=== PATIENT | female | born 1975 | race Hispanic/Latino ===

== ENCOUNTER 2018-04-02 05:55 | Observation (INO) | payer OTHER ==
--- NOTE | 2018-03-29 13:51 | Anesthesia Day of Surgery ---
Anesthesia Day of Surgery - Day of Surgery Patient Examined: Yes Patient H&P Reviewed: Yes Patient is NPO: Yes
--- NOTE | 2018-03-29 13:54 | Anesthesia Consultation ---
Anesthesia Consult and Med Hx Date of service: 03/29/18 - Airway Anesthetic Teeth Evaluation: Good (missing left upper molar) ROM Head & Neck: Adequate Mental/Hyoid Distance: Adequate Mallampati Class: Class III Intubation Access Assessment: Possibly Difficult - Pulmonary Exam CTA: Yes - Cardiac Exam Cardiac Exam: RRR - Pre-Operative Health Status ASA Pre-Surgery Classification: ASA3 Proposed Anesthetic Plan: General - Pulmonary Hx Smoking: Yes (1ppd x 20 yrs) Hx Respiratory Symptoms: No (Chronic Sinusitis) Hx Sleep Apnea: No (undiagnosed. Snores) - Cardiovascular System Hx Angina: No (LVH, EF 55%) - Central Nervous System Hx Seizures: No (Migraines) Hx Psychiatric Problems: Yes (Anxiety d/o) - Gastrointestinal Hx Gastroesophageal Reflux Disease: Yes - Hematic Hx Anemia: Yes - Other Systems Hx Cancer: No Hx Obesity: Yes (morbid obesity)
[2018-03-29 14:28] LABS: Basophils # (Auto) 0.1 K/mm3 (0.0-0.1); Basophils % (Auto) 0.8 % (0.0-1.8); Eosinophils # (Auto) 0.4 K/mm3 (0.0-0.4); Eosinophils % (Auto) 3.5 % (0.0-4.3); Hematocrit 25.8 % (30.3-42.9); Hemoglobin 8.2 gm/dl (10.1-14.3); Lymphocytes # (Auto) 3.2 K/mm3 (1.2-5.4); Lymphocytes % (Auto) 25.4 % (13.4-35.0); Mean Corpuscular HGB Conc 32 % (30-34); Mean Corpuscular Hemoglobin 23 pg (28-32); Mean Corpuscular Volume 71 fl (79-97); Monocytes # (Auto) 0.6 K/mm3 (0.0-0.8); Monocytes % (Auto) 5.1 % (0.0-7.3); Platelet Count 468 K/mm3 (140-440); Red Blood Count 3.64 M/mm3 (3.65-5.03); Red Cell Distribution Width 18.2 % (13.2-15.2)
[2018-03-29 14:37] LABS: BUN/Creatinine Ratio 14; Blood Urea Nitrogen 7 mg/dL (7-17); Calcium 8.9 mg/dL (8.4-10.2); Hemolysis Index 3
--- NOTE | 2018-04-01 17:54 | History and Physical Report ---
History of Present Illness Date of examination: 03/29/18 History of present illness: This is a 42-year-old female with a long history of excessive and frequent menstruation. Her bleeding has been unresponsive to medical management and she now desires to proceed with hysterectomy. She has decided to have major surgery now because she feels she at her most optimal health for surgery and does not want to have to further exposure to generial ansesthesa if conservative intervention did not correct her bleeding. 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 Surgery lsc -endometriosis 1996 Cholecystectomy Abnormal PAP: negative Infection History HIV Risk Eval: no Hx of STD: None Active Medications (reviewed today): IBUPROFEN 800 MG ORAL TABLET (IBUPROFEN) 1 po TID (PRN) OXYCODONE-ACETAMINOPHEN 5-325 MG ORAL TABLET (OXYCODONE-ACETAMINOPHEN) 1-2po q6h prn pain IRON () VITAMIN C () Current Allergies (reviewed today): No known allergies Past Medical History: Reviewed history from 01/28/2018 and no changes required: Anemia Past Surgical History: Reviewed history from 01/28/2018 and no changes required: 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 PROFESSOR Surgery lsc -endometriosis 1996 Cholecystectomy Family History Summary: Other family member - Has No Family History of Uterine Cancer - Entered On: 2017 Other family member - Has No Family History of Stomach Cancer - Entered On: 2017 Other family member - Has No Family History of Spontaneous DVT-PE - Entered On: 04/01/2018 Other family member - Has No Family History of Small Bowel Cancer - Entered On: 04/01/2018 Other family member - Has No Family History of Pancreatic Cancer - Entered On: Other family member - Has No Family History of Kidney/Urinary Tract Cancer - Entered On: 04/01/2018 Other family member - Has No Family History of Colon Cancer - Entered On: 2017 Other family member - Has No Family History of Brain Cancer - Entered On: 2017 Other family member - Has No Family History of Biliary Tract Cancer - Entered On : 04/01/2018 Social History: Patient is Smoking History: Patient currently smokes every day. Risk Factors: Smoked Tobacco Use: Current every day smoker Counseled to quit/cut down: yes PAP Smear History: Date of Last PAP Smear: 10/02/2017 Previous Tobacco Use: Signed On 02/22/2018 Smoked Tobacco Use: Current every day smoker Cigarettes: Yes -- 1 pk daily pack(s) per day, Year started: age 22 Smokeless Tobacco Use: Never Counseled to quit/cut down: yes Passive smoke exposure: no Drug use: no HIV high-risk behavior: no Previous Alcohol Use: Signed On 02/22/2018 Alcohol use: yes Type: occ Drinks per day: social Exercise: no Seatbelt use: 100 % PAP Smear History: Date of Last PAP Smear: 10/02/2017 Review of Systems General Denies fever, chills, sweats, anorexia, fatigue, weakness, malaise, weight loss and sleep disorder. Complains of menorrhagia and abnormal vaginal bleeding. Denies vaginal discharge, incontinence, dysuria, hematuria, urinary frequency, amenorrhea, pelvic pain, genital sores, decreased libido, painful periods, painful sex, urinary urgency, hot flashes, vaginal dryness, vaginal itching and vaginal odor. CV Denies chest pains, palpitations, syncope, dyspnea on exertion, orthopnea, PND and peripheral edema. Resp Denies cough, dyspnea at rest, excessive sputum, hemoptysis, wheezing and pleurisy. GI Denies nausea, vomiting, diarrhea, constipation, change in bowel habits, abdominal pain, melena, hematochezia, jaundice, gas/bloating, indigestion/ heartburn, dysphagia and odynophagia. Endo Denies cold intolerance, heat intolerance, polydipsia, polyphagia, polyuria and unusual weight change. Breast Denies left breast lump, right breast lump, nipple discharge, bloody discharge from nipple, breast pain, abnormal mammogram and breast enlargement. MS Denies back pain, joint pain, joint swelling, muscle cramps, muscle weakness, stiffness, arthritis, sciatica, restless legs, leg pain at night and leg pain with exertion. Derm Denies rash, itching, dryness and suspicious lesions. Neuro Denies paralysis, paresthesias, headache, seizures, tremors, vertigo, transient blindness, frequent falls, frequent headaches and difficulty walking. Psych Denies depression, anxiety, irritability and mood swings. Eyes Denies blurring, diplopia, irritation, discharge, vision loss, eye pain and photophobia. ENT Denies earache, ear discharge, tinnitus, decreased hearing, nasal congestion, nosebleeds, sore throat and hoarseness. Allergy Denies urticaria, allergic rash, hay fever and recurrent infections. Heme Denies abnormal bruising, bleeding and enlarged lymph nodes. Physical Exam Appearance: well developed, well nourished, no acute distress Other Exams Lungs: no rales, rhonchi, or wheezes Heart: S1, S2, no murmur, rub, or gallop Abdomen: soft, non-tender, no masses Appearance: obese Impression & Recommendations: Problem # 1: Excessive and frequent menstruation with irregular cycle (ICD- 626.6) (IGC08-C48.1) Consent reviewed and signed . Possible laparoscopy or laparotomy explained to patient. The risks and alternatives for this surgery were reviewed with the patient. She was informed of possible bleeding, infection, injury to bowel, bladder, ureters or other adjacent organs. She was informed she may require surgery later to have her ovaries removed for a benign or mailgnant condition The patient was instructed/informed the following: The normal length of hospital stay for this procedure. Nothing to eat or drink after midnight the evening prior to surgery. Clear liquids the day before surgery. Fleets enema the day prior to surgery. Pre-op instruction sheets given. Wound care instructions given. Infection precautions reviewed, patient to call for any signs or symptoms of infection. The usual discomforts associated with this procedure were detailed. Proper use of pain medicines was reviewed. Patient was given ample opportunity to have all her questions answered before signing informed consent. Problem # 2: Body Mass Index 60.0-69.9, adult (ICD-V85.44) (JUN75-S80.44) She is aware she may require an open procedure therefore, due to her body habitus, she may have a higher risk for bleeding, infection and wound break down. Problem # 3: Anemia secondary to blood loss (chronic) (ICD-280.0) (TQG54-J28.0) She is aware she will probably require a transfusion of PRBC, risks were discussed. She states she will accept the transfusion of PRBC and other products if needed. Problem # 4: Family History of Ovarian Cancer (ICD-V16.41) (RHF13-F90.41) She declines BRCA assessment prior to surgery. She was informed her risk for developing ovarian or breast cancer may be higher than the general population. Patient voiced understanding and still desires ovarian conservation. Problem # 5: Smoker (ICD-305.1) (RZU07-R44.210) Discussed the hazards of tobacco smoking (use). Smoking cessation recommended and techniques and options to help patient quit were discussed. Prescriptions: IBUPROFEN 800 MG ORAL TABLET (IBUPROFEN) 1 po TID (PRN) #30 x 1 Entered and Authorized by: Mayi León MD Method used: Print then Give to Patient RxID: [id number] OXYCODONE-ACETAMINOPHEN 5-325 MG ORAL TABLET (OXYCODONE-ACETAMINOPHEN) 1-2po q6h prn pain #30 Tablet x 0 Entered and Authorized by: Mayi León MD Method used: Print then Give to Patient RxID: [id number] Medications and Allergies Allergies Allergy/AdvReac Type Severity Reaction Status Date / Time No Known Allergies Allergy Unverified 03/26/18 11:52 Home Medications Medication Instructions Recorded Confirmed Last Taken Type ALPRAZolam [Xanax TAB] 1 mg PO PRN PRN 03/26/18 03/26/18 Unknown History Ascorbic Acid [Vitamin C] 1,500 mg PO DAILY 03/26/18 03/26/18 Unknown History Ferrous Sulfate [Iron] 325 mg PO DAILY 03/26/18 03/26/18 Unknown History Metformin HCl 500 mg PO DAILY 03/26/18 03/26/18 Unknown History Vit-Fe Fumar-FA [ 1 tab PO QDAY 03/26/18 03/26/18 Unknown History Vitamin] Active Meds: Active Medications Celecoxib (Celebrex) 200 mg PO PREOP NR Stop: 04/02/18 23:00 Gabapentin (Neurontin) 300 mg PO PREOP NR Stop: 04/02/18 23:00 Lactated Ringer's (Lactated Ringers) 1,000 mls @ 100 mls/hr IV DIRECT ZIYAD Lactated Ringer's (Lactated Ringers) 1,000 mls @ 42 mls/hr IV DIRECT ZIYAD Cefazolin Sodium 3 gm/ Sodium (Chloride) 100 mls @ 200 mls/hr IV ONCE ONE Stop: 04/02/18 05:59 Sodium Chloride (Nacl 0.9% 500 Ml) 500 mls @ 0 mls/hr IV ONCE ONE Stop: 04/02/18 05:31 Midazolam HCl (Versed) 2 mg IV PREOP NR Stop: 04/02/18 23:59 Exam Vital Signs Temp Pulse Resp BP 98.8 F 88 20 148/90 03/29/18 13:05 03/29/18 13:05 03/29/18 13:05 03/29/18 13:05 Results - Labs 03/29/18 13:15 03/29/18 13:15 Assessment and Plan - Patient Problems (1) Excessive and frequent menstruation with irregular cycle Status: Acute (2) Endometrial mass Status: Acute (3) BMI 60.0-69.9, adult Status: Chronic (4) Smoker Status: Chronic (5) Anemia due to chronic blood loss Status: Chronic (6) Family history of malignant neoplasm of ovary Status: Chronic
[~2018-04-02 05:55] MED LIST: LACTATED RINGERS 1,000 ML IV SCH; NACL 0.9% 500 ML 500 ML IV ONE; PEPCID PO NR; VERSED IV NR; ceFAZolin 3 GM in NACL 0.9% 100 ML IV ONE
[2018-04-02] MEDS ORDERED: VERSED IV NR (06:00)
[2018-04-02] MEDS ORDERED: LACTATED RINGERS 1,000 ML IV SCH ×2 (06:00→14:00)
[2018-04-02] MEDS ORDERED: NEURONTIN PO NR (06:00)
[2018-04-02] MEDS ORDERED: NACL BACTERIOSTATIC INFILTRATI ONE (06:36)
[2018-04-02 07:12] LABS: Mean Corpuscular HGB Conc 31 % (30-34); Mean Corpuscular Hemoglobin 22 pg (28-32); Mean Corpuscular Volume 71 fl (79-97); Platelet Count 518 K/mm3 (140-440); Red Blood Count 3.67 M/mm3 (3.65-5.03); Red Cell Distribution Width 18.3 % (13.2-15.2)
[2018-04-02] MEDS ORDERED: ceFAZolin 3 GM in NACL 0.9% 100 ML IV NR (07:15)
[2018-04-02] MEDS ORDERED: XYLOCAINE MPF 2% ONE (07:16)
[2018-04-02] MEDS ORDERED: DECADRON ONE (07:16)
[2018-04-02] MEDS ORDERED: DIPRIVAN 10 MG/ML IV ONE ×2 (07:16→11:18)
[2018-04-02] MEDS ORDERED: ZOFRAN ONE (07:16)
[2018-04-02] MEDS ORDERED: BLOXIVERZ ONE (07:16)
[2018-04-02] MEDS ORDERED: ROBINUL ONE ×2 (07:16→11:13)
[2018-04-02] MEDS ORDERED: ZEMURON IV ONE (07:16)
[2018-04-02] MEDS ORDERED: DILAUDID ONE (07:16)
[2018-04-02] MEDS ORDERED: NEOSPORIN GU IR ONE ×3 (07:45→10:00)
[2018-04-02] MEDS ORDERED: ACD-A 500 ML IV ONE (07:45)
[2018-04-02] MEDS ORDERED: KETALAR ONE (07:51)
[2018-04-02] MEDS ORDERED: BENADRYL IV PRN (08:38)
[2018-04-02] MEDS ORDERED: MARCAINE 0.5% 30 ML INFILTRATI ONE (09:18)
[2018-04-02] MEDS ORDERED: MARCAINE 0.5% INFILTRATI ONE (10:00)
[2018-04-02] MEDS ORDERED: WATER FOR IRRIG STERILE IR ONE (10:00)
[2018-04-02] MEDS ORDERED: NACL 0.9% IR ONE (10:00)
[2018-04-02] MEDS ORDERED: PROVENTIL IH ONE ×2 (11:51→11:57)
--- NOTE | 2018-04-02 11:57 | Post Operative Note ---
Pre-op diagnosis: RATH with bilateral salpingectomy Post-op diagnosis: same Anesthesia: GETA Surgeon: WILD BABIN Estimated blood loss: 50-100ml Specimen disposition: to lab Condition: stable Disposition: PACU
[2018-04-02] MEDS: DILAUDID IV PRN ×2 (12:15→12:25)
--- NOTE | 2018-04-02 12:20 | Anesthesia Day of Surgery ---
Anesthesia Day of Surgery - Day of Surgery Patient Examined: Yes Patient H&P Reviewed: Yes Patient is NPO: Yes
[2018-04-02] MEDS ORDERED: REGLAN IV PRN (13:11)
[2018-04-02] MEDS ORDERED: ZOFRAN IV PRN (13:11)
[2018-04-02] MEDS ORDERED: MORPHINE IV PRN (13:11)
[2018-04-02] MEDS ORDERED: TYLENOL PO PRN (13:11)
[2018-04-02] MEDS ORDERED: NARCAN 0.4 MG/1 ML IV PRN (13:11)
[2018-04-02] MEDS ORDERED: TYLENOL PR PRN (13:11)
[2018-04-02] MEDS ORDERED: REGLAN PO PRN (13:11)
[2018-04-02] MEDS ORDERED: ZOFRAN PO PRN (13:11)
[2018-04-02 13:19] LABS: Hematocrit 30.1 % (30.3-42.9)
--- NOTE | 2018-04-02 14:30 | Post Anesthesia Evaluation ---
- Post Anesthesia Evaluation Patient Participated: Yes Airway Patent: Yes Stable Respiratory Function: Yes (Lungs CTAB s/p albuterol neb. Using incentive spirometry. Stable on 4L NC.) Nausea/Vomiting: No Temp > 96.8F: Yes Pain Manageable: Yes Adequeate Hydration: Yes Anesthesia Complications: No Block Receding Appropriately: Not Applicable Patient on Ventilator: No
[2018-04-02] MEDS: PERCOCET 5/325 PO PRN (15:48)
[2018-04-02] MEDS: LACTATED RINGERS 1,000 ML IV SCH ×2 (15:50→22:39)
[2018-04-02] MEDS ORDERED: CEPACOL X STRENGTH MM PRN (18:40)
--- NOTE | 2018-04-02 18:40 | Progress Note ---
Assessment and Plan - Patient Problems (1) History of robot-assisted laparoscopic hysterectomy Current Visit: Yes Status: Acute Plan to address problem: Findings and procedure discussed with patient and her , OOB to chair this pm. Importance of leonard catheter and VTE prophylaxis emphasized. OOB to chair, IC usage encouraged. She voiced understanding and agrees with plan. (2) Status post bilateral salpingectomy Current Visit: Yes Status: Acute (3) BMI 60.0-69.9, adult Current Visit: No Status: Chronic (4) Smoker Current Visit: No Status: Chronic Plan to address problem: She declines Nicotine patch at this time (5) Anemia due to chronic blood loss Current Visit: No Status: Chronic Plan to address problem: H/H planned for am (6) Excessive and frequent menstruation with irregular cycle Current Visit: No Status: Resolved (7) Endometrial mass Current Visit: No Status: Resolved (8) Family history of malignant neoplasm of ovary Current Visit: No Status: Chronic Subjective Date of service: 04/02/18 Principal diagnosis: DOS, RATH, (B) salpingectomy Interval history: Resting in bed, complaints of leonard catheter burning and sore throat Objective - Constitutional Vitals: Vital Signs - 12hr 04/02/18 04/02/18 04/02/18 11:44 11:50 11:55 Temperature 97.2 F L Pulse Rate 106 H 103 H 102 H Respiratory 22 24 25 H Rate Blood Pressure 145/72 141/72 132/64 Blood Pressure [Right] O2 Sat by Pulse 95 95 96 Oximetry 04/02/18 04/02/18 04/02/18 12:00 12:15 12:25 Temperature Pulse Rate 101 H 98 H Respiratory 24 20 20 Rate Blood Pressure 131/70 140/72 Blood Pressure [Right] O2 Sat by Pulse 96 98 Oximetry 04/02/18 04/02/18 04/02/18 12:30 12:45 12:55 Temperature 97.8 F Pulse Rate 97 H 93 H Respiratory 20 19 18 Rate Blood Pressure 122/65 128/83 Blood Pressure [Right] O2 Sat by Pulse 95 96 Oximetry 04/02/18 04/02/18 04/02/18 13:00 13:15 13:30 Temperature Pulse Rate 90 87 90 Respiratory 16 19 19 Rate Blood Pressure 144/74 137/81 136/78 Blood Pressure [Right] O2 Sat by Pulse 95 95 95 Oximetry 04/02/18 04/02/18 04/02/18 13:45 14:08 14:10 Temperature 97.3 F L 97.3 F L 97.3 F L Pulse Rate 89 98 H 98 H Respiratory 19 18 18 Rate Blood Pressure 124/77 154/93 154/93 Blood Pressure [Right] O2 Sat by Pulse 96 94 94 Oximetry 04/02/18 04/02/18 15:09 16:00 Temperature 97.8 F Pulse Rate 88 Respiratory 18 Rate Blood Pressure Blood Pressure 149/88 [Right] O2 Sat by Pulse 97 95 Oximetry General appearance: Present: no acute distress - Neck Neck: supple, normal ROM - Respiratory Respiratory effort: normal Respiratory: bilateral: CTA - Breasts Breasts: deferred - Cardiovascular Rhythm: regular Extremities: no ischemia, No edema - Gastrointestinal General gastrointestinal: Present: soft, normal bowel sounds - Psychiatric Psychiatric: appropriate mood/affect, intact judgment & insight - Labs CBC & Chem 7: 04/02/18 13:00 03/29/18 13:15 Labs: Abnormal lab results 04/02/18 04/02/18 04/02/18 Range/Units 06:45 06:45 12:03 WBC 11.6 H (4.5-11.0) K/mm3 Hgb 8.0 L (10.1-14.3) gm/dl Hct 26.0 L (30.3-42.9) % MCV 71 L (79-97) fl MCH 22 L (28-32) pg RDW 18.3 H (13.2-15.2) % Plt Count 518 H (140-440) K/mm3 POC Glucose 180 H (70-105) Crossmatch See Detail 04/02/18 Range/Units 13:00 WBC (4.5-11.0) K/mm3 Hgb 9.0 L (10.1-14.3) gm/dl Hct 30.1 L (30.3-42.9) % MCV (79-97) fl MCH (28-32) pg RDW (13.2-15.2) % Plt Count (140-440) K/mm3 POC Glucose (70-105) Crossmatch
--- NOTE | 2018-04-02 18:48 | Operative Report ---
Operative Report Operative Report: Date: 04/02/2018 Preoperative diagnosis: 1. Excessive and frequent irregular menstruation unresponsive to medical management 2. Endometrial mass 3. Body mass index 64 4. Smoker 5. Anemia due to chronic blood loss Postoperative diagnosis: 1. Excessive and frequent irregular menstruation unresponsive to medical management 2. Endometrial mass 3. Body mass index 64 4. Smoker 5. Anemia due to chronic blood loss Procedure: Robotic-assisted laparoscopic total hysterectomy with bilateral salpingectomy Surgeon: Mayi León MD Stove Carriage Operator: Khoa Juarez Anesthesiologist: Dr. Zuñiga Anesthesia: General endotracheal anesthesia EBL: Approximately 50 mL Findings: Uterus was sounded to approximately 9 cm. Grossly normal fallopian tubes and ovaries. Procedure: Patient was taken to the OR and placed in the supine position. General anesthesia was induced and an oral gastric tube was placed. Her neck and head were placed on foam support. Foam eye protection with goggles were secured in place. Then foam face protection was placed and secured. Foam shoulder pads were then positioned on her shoulders for Trendelenburg positioning. Additionally the Velcro strap was placed over her shoulders and across her chest to secure her position. She was then placed in dorsolithotomy position. The abdomen and vagina were then prepped and draped in the usual sterile fashion. Timeout was performed. A Nunes catheter was inserted into the bladder with drainage of clear yellow urine. The operative speculum was introduced into the vagina and the anterior lip of the cervix was grasped with single-toothed tenaculum. The uterus was sounded to 9 cm. The cervix was progressively dilated to allow the large V care uterine manipulator. The bulb of the manipulator was inflated and the speculum and tenaculum were removed. The cup of the manipulator was placed around the cervix and the blue occluder of the manipulator was properly positioned in the vagina. A laparotomy sponge that was saturated with a solution of polymyxin and saline was placed in the vagina to ensure pneumoperitoneum. Sterile gloves were placed and attention was turned to the abdomen. A 10 mm midline vertical supraumbilical incision was made approximately 10 cm superior to the umbilicus. A 12 mm trocar with the laparoscope and camera attached was introduced through this incision under direct visualization. The abdomen was insufflated. No obvious bowel, bladder, ureteral, or major vascular injury was noted. The patient was then placed in Trendelenburg position and the following trochars were placed under direct visualization: 8 mm robotic trochars were placed through incisions made in the bilateral midclavicular lower abdominal region approximately 10 cm lateral and approximately 2 cm below the midline incision, and a 5 mm trocar was placed through an incision made in the right lower lateral pelvis approximately 2 cm superior to the iliac crest. The 10 mm laparoscope was then replaced by a 5 mm laparoscope that was placed through the 5 millimeter lateral trocar. The 12 mm trocar was then removed in the Nestor Richard fascial closure device was placed through the incision and a 0 Vicryl was placed through the fascia. Once the suture was secured the 12 mm trocar was reintroduced. Additional 5 mm trocar was placed in the right upper quadrant. Once the trochars were in the appropriate positions, the da Cricket robot system was engaged. The EndoShears and bipolar device was placed through the 8 mm trochars and positioned then attention was turned to the console. The uterus was elevated and bilateral salpingectomy was performed. Each tube was removed through the 5 mm trocar and sent to pathology in separate containers. Then the utero-ovarian ligaments were clamped. cauterized and incised bilaterally using 30 W of energy. Then the round ligaments were clamped, cauterized and incised bilaterally. At this point the anesthesiologist was concerned about proper ventilation, the instruments were removed and the robot was disengaged and patient was taken out deep Trendelenburg position. Once the anesthesiologists confirmed proper ventilation, the robot was adjusted and reengaged. The instruments were reintroduced. The anterior leaf of the broad ligament was elevated and careful blunt and sharp dissection the bladder flap was created and dissected away from the lower uterine segment and cervix. Because the patient was no longer able to maintain steep Trendelenburg position was difficulty manipulating the bowel away from the operative field. The 5 mm lateral trocar was removed. The incision was extended to 12 mm trocar. Using the laparoscopic fan the bowel was elevated from the the pelvis and the operative field. The posterior leaf of the broad ligament was dissected away from the uterine vessels. The cup of the uterine manipulator was palpated both anteriorly and posteriorly. Course of the ureters was visualized and was confirmed to be away from the operative field. The uterine vessels were then clamped and cauterized bilaterally. Blanching of the uterus was then noted. Attention was again turned to the anterior lower uterine segment and the bladder was confirmed to be away from the operative field. Then attention was turned again to the antterior where the cup of the manipulator was palpated and a colpotomy was performed down to the cup. The incision was extended in the lateral position the uterine vessels that were again clamped and cauterized and incised. Continuing along the cup of the manipulator in a circumferential manner the colpotomy was completed. The uterus and cervix were then removed through the vaginal incision. The pelvis was irrigated with warm normal saline. A moist laparotomy sponge was placed in the vagina to maintain pneumoperitoneum. The vagina cuff was reapproximated using V LOC 180 suture in a simple running stitch. Then a J stitch was performed to secure the suture. Again the pelvis was copiously irrigated with polymixin in warm normal saline. The laparotomy sponge was removed from the vagina. No bowel, bladder, ureteral or major vascular injury was noted. Once hemostasis was noted, Lennie and Surgicel was applied to the operative field to ensure hemostasis. Then Interceed was applied to the operative field to decrease formation of adhesions. Again hemostasis was noted. Grossly normal appendix was noted. Then the instruments were removed, the robot was disengaged. The 12 mm trocar was removed and the fascia was ligated with the 0 Vicryl suture that was placed at the beginning of the procedure. The patient was taken out of Trendelenburg position, the abdomen was desufflated, the remaining trochars were removed. Incisions were reapproximated using 4-0 Vicryl in a subcuticular manner. Incisions were infused with 30 mL of half percent Marcaine without epinephrine and Surgiseal was placed over the incisions. The vagina was then inspected, no bleeding was noted and clear yellow urine was draining into the Nunes bag from the bladder at the end of the procedure. Patient was taken to recovery room in stable condition. Counts were correct 3
[2018-04-02] MEDS: ceFAZolin 2 GM in NACL 0.9% 100 ML IV SCH (22:16)
[2018-04-02] MEDS: LOVENOX SUB-Q SCH (22:17)
[2018-04-02] MEDS: PEPCID IV SCH (22:17)
[2018-04-03 04:41] LABS: Hemoglobin 7.8 gm/dl (10.1-14.3)
[2018-04-03] MEDS: ceFAZolin 2 GM in NACL 0.9% 100 ML IV SCH (05:22)
[2018-04-03] MEDS: PERCOCET 5/325 PO PRN ×2 (05:23→13:40)
--- NOTE | 2018-04-03 08:21 | Progress Note ---
Assessment and Plan No obvious evidence of active bleeding, will recheck H/H at 1000 am INT IV Encouraged ambulation and shower with assistance Possibly d/c home if h/h and VSS She voiced understanding and agrees with plan of care - Patient Problems (1) History of robot-assisted laparoscopic hysterectomy Current Visit: Yes Status: Acute (2) Status post bilateral salpingectomy Current Visit: Yes Status: Acute (3) BMI 60.0-69.9, adult Current Visit: No Status: Chronic (4) Smoker Current Visit: No Status: Chronic (5) Anemia due to chronic blood loss Current Visit: No Status: Chronic (6) Excessive and frequent menstruation with irregular cycle Current Visit: No Status: Resolved (7) Endometrial mass Current Visit: No Status: Resolved (8) Family history of malignant neoplasm of ovary Current Visit: No Status: Chronic Subjective Date of service: 04/03/18 Principal diagnosis: POD#1 RALTH, (B) salpingectomy Interval history: Resting in bed with at bedside, no complaints, desires to ambulate and go home today, does want another blood transfusion if possible. Objective - Constitutional Vitals: Vital Signs - 12hr 04/03/18 04/03/18 05:18 07:59 Temperature 98.2 F Pulse Rate 92 H Respiratory 18 Rate Blood Pressure 111/51 [Right] O2 Sat by Pulse 96 97 Oximetry General appearance: Present: no acute distress - Neck Neck: supple - Respiratory Respiratory effort: normal Respiratory: bilateral: CTA - Breasts Breasts: deferred - Cardiovascular Rhythm: regular Extremities: no ischemia, No edema - Gastrointestinal General gastrointestinal: Present: soft, non-tender, normal bowel sounds - Integumentary Integumentary: clear, warm, dry (Incisions w/o s/s infection) - Psychiatric Psychiatric: appropriate mood/affect, intact judgment & insight - Labs CBC & Chem 7: 04/03/18 04:15 03/29/18 13:15 Labs: Abnormal lab results 04/02/18 04/02/18 04/02/18 Range/Units 06:45 12:03 13:00 Hgb 9.0 L (10.1-14.3) gm/dl Hct 30.1 L (30.3-42.9) % POC Glucose 180 H (70-105) Crossmatch See Detail 04/03/18 Range/Units 04:15 Hgb 7.8 L (10.1-14.3) gm/dl Hct 25.0 L (30.3-42.9) % POC Glucose (70-105) Crossmatch
[2018-04-03] MEDS ORDERED: MOTRIN PO PRN (08:23)
[2018-04-03] MEDS: LOVENOX SUB-Q SCH (09:09)
[2018-04-03] MEDS: PEPCID IV SCH (09:09)
[2018-04-03] MEDS ORDERED: COLACE PO SCH (10:00)
[2018-04-03 10:46] LABS: Hematocrit 27.4 % (30.3-42.9); Hemoglobin 8.3 gm/dl (10.1-14.3)
[2018-04-03 12:15] VITALS: BP 135/75
--- NOTE | 2018-04-03 13:16 | Discharge Summary ---
Providers - Providers Date of Admission: 04/02/18 11:47 Date of discharge: 04/03/18 Attending physician: WILD BABIN Hospitalization Condition: Good Hospital course: Uncomplicated Disposition: DC-01 TO HOME OR SELFCARE - Discharge Diagnoses (1) History of robot-assisted laparoscopic hysterectomy Status: Acute (2) Status post bilateral salpingectomy Status: Acute (3) BMI 60.0-69.9, adult Status: Chronic (4) Smoker Status: Chronic (5) Anemia due to chronic blood loss Status: Chronic (6) Excessive and frequent menstruation with irregular cycle Status: Resolved (7) Endometrial mass Status: Resolved (8) Family history of malignant neoplasm of ovary Status: Chronic Core Measure Documentation - Palliative Care Palliative Care/ Comfort Measures: Not Applicable - Core Measures Any of the following diagnoses?: none Exam - Physical Exam Narrative exam: Spoke iwth patient by phone, labs discussed, no complaints, desires d/c home - Constitutional Vitals: Temp Pulse Resp BP Pulse Ox 98.3 F 100 H 18 135/75 94 04/03/18 12:00 04/03/18 12:00 04/03/18 12:00 04/03/18 12:00 04/03/18 12:00 Plan Activity: other (NO sex, no driving. [place]ulate 1.[place]miles on your property daily. Use you Incentive spirometer every hour while awake) Weight Bearing Status: Full Weight Bearing Diet: low fat, low cholesterol, low salt (Eat small meals frequently. Drink ~ 200oz water a day. Void every 1hour. ) Wound: open to air, keep clean and dry Special Instructions: no heavy lifting (>25#) Follow up with: ELHAM MCDANIEL [Other] - 7 Days WILD BABIN MD [Staff Physician] - (As schdeuled) Prescriptions: Ferrous Sulfate [Feosol 325 MG tab] 325 mg PO BID #90 tablet
[2018-04-03] MEDS ORDERED: FEOSOL PO SCH (14:00)
== END 2018-04-03 14:14 | disposition home or self-care (01) ==
LOC: OR 05:55 → 3B-SURG 11:47
PROVIDERS: ADMIT Obstetrics & Gynecology; ATTEND Obstetrics & Gynecology
DX: N92.1 Excessive and frequent menstruation with irregular cycle (principal); N85.8 Other specified noninflammatory disorders of uterus; D50.0 Iron deficiency anemia secondary to blood loss (chronic); F17.210 Nicotine dependence, cigarettes, uncomplicated; F41.9 Anxiety disorder, unspecified; K21.9 Gastro-esophageal reflux disease without esophagitis; G43.909 Migraine, unspecified, not intractable, without status migrainosus; E66.01 Morbid (severe) obesity due to excess calories; Z68.43 Body mass index [BMI] 50.0-59.9, adult; Z72.89 Other problems related to lifestyle; Z80.41 Family history of malignant neoplasm of ovary
CPT/HCPCS: 36415; 36430; 58552; 80048; 81025; 82962; 85014; 85018; 85025; 85027; 86850; 86900; 86901; 86920; 88302; 88307; 94760; 96365; 96366; 96372; 96375; 96376; 99406; A4217; C1765; G0378; J0690; J1100; J1170; J1650; J2250; J2270; J2405; J2704; J2710; J2765; J7120; P9016; S2900